=== PATIENT | male | born 1960 | race Caucasian/White ===

== ENCOUNTER → 2017-03-06 | Outpatient (CLI) | payer OTHER | LOC: CAT 10:03 | DX: C49.9 Malignant neoplasm of connective and soft tissue, unspecified (principal); I71.9 Aortic aneurysm of unspecified site, without rupture; M79.9 Soft tissue disorder, unspecified ==

== ENCOUNTER → 2017-03-11 | Outpatient (CLI) | payer OTHER | LOC: CAT 14:20 | DX: Z13.6 Encounter for screening for cardiovascular disorders (principal) ==